=== PATIENT | male | born 1950 | race American Indian/Alaskan Native ===

== ENCOUNTER 2018-01-21 18:16 | Emergency (ER) | payer MEDICARE, BC ==
[2018-01-21] MEDS ORDERED: Aspirin 81 MG Tab.Chew PO ONE (18:34)
[2018-01-21] MEDS ORDERED: Sodium Chloride 0.9% 10 ML Syringe FLUSH PRN (18:36)
--- NOTE | 2018-01-21 18:44 | EDM.PDOC ---
ED HPI GENERAL MEDICAL PROBLEM - General Chief Complaint: Chest Pain Stated Complaint: TROUBLE BREATHING/CHEST PAIN Time Seen by Provider: 01/21/18 18:30 Source of Information: Reports: Patient History Limitations: Reports: No Limitations - History of Present Illness INITIAL COMMENTS - FREE TEXT/NARRATIVE: 68-year-old male presents for evaluation and treatment of chest pain. Patient reports the chest pain has been going on for several weeks. States is located in the substernal area and he has appreciated some radiation up into his jaw. Reports that last night was the worst at that point the pain was a 7 or 8 out of 10. Currently chest pain as a 1 or 2 out of 10. He declines any pain medication for chest pain at this time. States last night he had trouble sleeping and getting comfortable. Exertion seems to worsen the chest pain. He is reporting associated symptoms of shortness of breath and dyspnea on exertion. He denies any recent fevers or cold symptoms. Reports that he has a chronic cough which she has been seen for. Denies any syncope, pain or swelling in his legs, abdominal pain, nausea or vomiting. Patient rep he is a diabetic currently on metformin and insulin both short and long-acting. He also has a history of hypertension and is obese. Patient reports he was no an [place] cruise the beginning of January. He is not a smoker. No cardiac history himself. No history of any MIs or arrhythmias. Location: Reports: Chest Chest Pain Score (Numeric/FACES): 1 - Related Data Allergies Allergy/AdvReac Type Severity Reaction Status Date / Time levofloxacin [From Levaquin] Allergy Shortness Verified 01/21/18 18:24 of Breath Past Medical History Cardiovascular History: Reports: Hypertension Endocrine/Metabolic History: Reports: Diabetes, Type II Social & Family History - Tobacco Use Smoking Status *Q: Never Smoker - Recreational Drug Use Recreational Drug Use: No ED ROS GENERAL - Review of Systems Review Of Systems: See Below Constitutional: Denies: Fever, Diaphoresis Respiratory: Reports: Shortness of Breath, Cough (chronic) Cardiovascular: Reports: Chest Pain, Dyspnea on Exertion, Lightheadedness. Denies: Edema, Syncope GI/Abdominal: Denies: Abdominal Pain, Nausea, Vomiting Musculoskeletal: Denies: Leg Pain Neurological: Denies: Syncope ED EXAM, GENERAL - Physical Exam Exam: See Below Exam Limited By: No Limitations General Appearance: Alert, WD/WN, No Apparent Distress Ears: Normal External Exam Nose: Normal Inspection Throat/Mouth: Normal Inspection, Normal Voice, No Airway Compromise Respiratory/Chest: No Respiratory Distress, Lungs Clear, Normal Breath Sounds Cardiovascular: No Murmur, Tachycardia GI/Abdominal: Soft, Non-Tender Neurological: Alert, Oriented, Normal Cognition Psychiatric: Normal Affect, Normal Mood Skin Exam: Warm, Dry, Normal Color EKG INTERPRETATION EKG Date: 01/21/18 Time: 18:20 Rhythm: Other (sinus tachycardia at 115 bpm.) Rate (Beats/Min): 115 [place]: RAD-Right [place] Deviation P-Wave: Present QRS: Normal ST-T: Normal QT: Normal EKG Interpretation Comments: Sinus tachycardia at 115 bpm. Inverted t waves in the inferior leads. No St elevation. Reviewed by myself and Dr. Martell. Course - Vital Signs Last Recorded V/S: Last Vital Signs Temp 97.2 F 01/21/18 18:24 Pulse 104 H 01/21/18 20:10 Resp 26 H 01/21/18 18:24 BP 139/95 H 01/21/18 20:10 Pulse Ox 96 01/21/18 18:24 - Orders/Labs/Meds Orders: Active Orders 24 hr Category Date Time Status Cardiac Monitoring [RC] . DIRECTED Care 01/21/18 18:39 Active EKG Documentation Completion [RC] ASDIRECTED Care 01/21/18 18:35 Active Peripheral IV Care [RC] . DIRECTED Care 01/21/18 18:36 Active Chest 1V Frontal [CR] Stat Exams 01/21/18 18:34 Taken Chest PE [Ang Chest] [CT] Stat Exams 01/21/18 19:03 Taken Heparin Sodium/D5W [Heparin 25,000 Units in D5W 500 ML] Med 01/21/18 19:30 Active 25,000 units in 500 ml IV TITRATE Nitroglycerin/D5W [Nitroglycerin 25 MG/D5W 250 ML] Med 01/21/18 19:30 Active 25 mg in 250 ml IV TITRATE Sodium Chloride 0.9% [Saline Flush] Med 01/21/18 18:36 Active 10 ml FLUSH ASDIRECTED PRN Peripheral IV Insertion Adult [OM.PC] Routine Oth 01/21/18 18:36 Ordered EKG 12 Lead [EK] Stat Ther 01/21/18 18:34 Ordered Medication Orders Heparin Sodium/Dextrose (Heparin 25,000 Units In D5w 500 Ml) 25,000 units in 500 mls @ 20 mls/hr IV TITRATE VADIM Last Admin: 01/21/18 19:46 Dose: 1,000 units/hr, 20 mls/hr Nitroglycerin/Dextrose (Nitroglycerin 25 Mg/D5w 250 Ml) 25 mg in 250 mls @ 3 mls/hr IV TITRATE VADIM; Protocol Last Admin: 01/21/18 19:46 Dose: 5 mcg/min, 3 mls/hr Sodium Chloride (Saline Flush) 10 ml FLUSH ASDIRECTED PRN PRN Reason: Keep Vein Open Last Admin: 01/21/18 18:39 Dose: 10 ml Labs: Laboratory Tests 01/21/18 01/21/18 01/21/18 Range/Units 18:30 18:30 18:30 WBC 12.78 H (4.23-9.07) K/mm3 RBC 5.47 (4.63-6.08) M/mm3 Hgb 16.2 (13.7-17.5) gm/L Hct 47.5 (40.1-51.0) % MCV 86.8 (79.0-92.2) fl MCH 29.6 (25.7-32.2) pg MCHC 34.1 (32.2-35.5) g/dl RDW Std Deviation 42.0 (35.1-43.9) fL Plt Count 244 (163-337) K/mm3 MPV 10.0 (9.4-12.3) fl Neut % (Auto) 80.3 H (34.0-67.9) % Lymph % (Auto) 9.0 L (21.8-53.1) % [place] % (Auto) 9.7 (5.3-12.2) % Eos % (Auto) 0.6 L (0.8-7.0) Baso % (Auto) 0.2 (0.1-1.2) % Neut # (Auto) 10.26 H (1.78-5.38) K/mm3 Lymph # (Auto) 1.15 L (1.32-3.57) K/mm3 [place] # (Auto) 1.24 H (0.30-0.82) K/mm3 Eos # (Auto) 0.08 (0.04-0.54) K/mm3 Baso # (Auto) 0.02 (0.01-0.08) K/mm3 Manual Slide Review Normal smear PT 10.3 (9.5-12.1) SECONDS INR 0.94 APTT 27 (24-31) SECONDS D-Dimer, Quantitative 2.16 H (0.19-0.50) mg/L Sodium 136 (136-145) mEq/L Potassium 4.1 (3.5-5.1) mEq/L Chloride 101 (98-107) mEq/L Carbon Dioxide 26 (21-32) mEq/L Anion Gap 13.1 (5-15) BUN 18 (7-18) mg/dL Creatinine 1.1 (0.7-1.3) mg/dL Est Cr Clr Drug Dosing 77.81 mL/min Estimated GFR (MDRD) > 60 (>60) mL/min BUN/Creatinine Ratio 16.4 (14-18) Glucose 201 H (80-115) mg/dL Calcium 9.5 (8.5-10.1) mg/dL Total Bilirubin 0.5 (0.2-1.0) mg/dL AST 119 H (15-37) U/L ALT 42 (16-63) U/L Alkaline Phosphatase 107 (46-116) U/L CK-MB (CK-2) 108.6 H (0-3.6) ng/ml Troponin I 12.879 H* (0.00-0.056) ng/mL NT-Pro-B Natriuret Pep (0-125) pg/mL Total Protein 8.3 H (6.4-8.2) g/dl Albumin 3.7 (3.4-5.0) g/dl Globulin 4.6 gm/dL Albumin/Globulin Ratio 0.8 L (1-2) /16/18 Range/Units 18:30 WBC (4.23-9.07) K/mm3 RBC (4.63-6.08) M/mm3 Hgb (13.7-17.5) gm/L Hct (40.1-51.0) % MCV (79.0-92.2) fl MCH (25.7-32.2) pg MCHC (32.2-35.5) g/dl RDW Std Deviation (35.1-43.9) fL Plt Count (163-337) K/mm3 MPV (9.4-12.3) fl Neut % (Auto) (34.0-67.9) % Lymph % (Auto) (21.8-53.1) % [place] % (Auto) (5.3-12.2) % Eos % (Auto) (0.8-7.0) Baso % (Auto) (0.1-1.2) % Neut # (Auto) (1.78-5.38) K/mm3 Lymph # (Auto) (1.32-3.57) K/mm3 [place] # (Auto) (0.30-0.82) K/mm3 Eos # (Auto) (0.04-0.54) K/mm3 Baso # (Auto) (0.01-0.08) K/mm3 Manual Slide Review PT (9.5-12.1) SECONDS INR APTT (24-31) SECONDS D-Dimer, Quantitative (0.19-0.50) mg/L Sodium (136-145) mEq/L Potassium (3.5-5.1) mEq/L Chloride (98-107) mEq/L Carbon Dioxide (21-32) mEq/L Anion Gap (5-15) BUN (7-18) mg/dL Creatinine (0.7-1.3) mg/dL Est Cr Clr Drug Dosing mL/min Estimated GFR (MDRD) (>60) mL/min BUN/Creatinine Ratio (14-18) Glucose (80-115) mg/dL Calcium (8.5-10.1) mg/dL Total Bilirubin (0.2-1.0) mg/dL AST (15-37) U/L ALT (16-63) U/L Alkaline Phosphatase (46-116) U/L CK-MB (CK-2) (0-3.6) ng/ml Troponin I (0.00-0.056) ng/mL NT-Pro-B Natriuret Pep 1952 H (0-125) pg/mL Total Protein (6.4-8.2) g/dl Albumin (3.4-5.0) g/dl Globulin gm/dL Albumin/Globulin Ratio (1-2) Meds: Medications Generic Name Dose Route Start Last Admin Trade Name Frephilipp PRN Reason Stop Dose Admin Heparin Sodium/Dextrose 25,000 units in 500 mls @ 20 mls/hr 01/21/18 19:30 19:46 Heparin 25,000 Units In D5w 500 Ml IV 1,000 units/hr TITRATE VADIM 20 mls/hr Administration 1,000 UNITS/HR Nitroglycerin/Dextrose 25 mg in 250 mls @ 3 mls/hr 01/21/18 19:30 01/21/18 19 :46 Nitroglycerin 25 Mg/D5w 250 Ml IV 5 mcg/min TITRATE VADIM 3 mls/hr Administration Protocol 5 MCG/MIN Sodium Chloride 10 ml 01/21/18 18:36 01/21/18 18:39 Saline Flush FLUSH 10 ml ASDIRECTED PRN Administration Keep Vein Open Discontinued Medications Generic Name Dose Route Start Last Admin Trade Name Rl PRN Reason Stop Dose Admin Aspirin 324 mg 01/21/18 18:34 01/21/18 18:39 Aspirin PO 01/21/18 18:35 324 mg ONETIME ONE Administration Heparin Sodium (Porcine) 5,000 units 01/21/18 19:23 01/21/18 19:44 Heparin Sodium IVPUSH 01/21/18 19:24 5,000 units ONETIME ONE Administration Hydromorphone HCl 0.5 mg 01/21/18 20:02 01/21/18 20:16 Dilaudid IVPUSH 01/21/18 20:03 0.5 mg ONETIME ONE Administration Nitroglycerin/Dextrose Confirm 01/21/18 19:30 01/21/18 19:50 Nitroglycerin 25 Mg/D5w 250 Ml Administered 01/21/18 19:31 Not Given Dose 25 mg in 250 mls @ as directed .ROUTE .STK-MED ONE Heparin Sodium/Dextrose Confirm 01/21/18 19:30 01/21/18 19:50 Heparin 25,000 Units In D5w 500 Ml Administered 01/21/18 19:31 Not Given Dose 500 mls @ as directed .ROUTE .STK-MED ONE Iopamidol 100 ml 01/21/18 19:14 01/21/18 19:45 Isovue-370 (76%) IVPUSH 01/21/18 19:15 100 ml ONETIME ONE Administration Metoprolol Tartrate 5 mg 01/21/18 20:02 01/21/18 20:10 Lopressor IVPUSH 01/21/18 20:03 5 mg ONETIME ONE Administration - Radiology Interpretation Free Text/Narrative:: chest xray shows no acute intrathoracic process. CT chest Technique: Multiple axial sections were obtained through the chest as a pulmonary angiogram protocol. Intravenous contrast was therefore utilized. Comparison: Prior CT chest performed as a high-resolution protocol is available. Findings: Slight fibrosis is again seen within the periphery of both lungs. No acute parenchymal densities are seen. Pulmonary arteries are well opacified. No filling defects are seen to indicate pulmonary embolism. Mediastinum and hilar regions show no adenopathy or mass. Prominent coronary artery calcification is noted. Small portion of the visualized upper abdominal structures are felt to be within normal limits. Bone window settings were reviewed which shows diffuse degenerative change within the spine. Several levels of disc calcification are seen. Impression: 1. No findings of pulmonary embolism. 2. Other incidental findings as noted above. - Re-Assessments/Exams Free Text/Narrative Re-Assessment/Exam: 01/21/18 20:29 Reviewed the labs, EKG and imaging with the patient. Once the d-dimer returned elevated I ordered a CT pulmonary angiogram exam. Heparin bolus of 5000 units given as well as a drip started at 1000 units an hour given. Nitroglycerin started at 5 g per hour. He was given Lopressor 5 mg IV. Blood pressures has come down. He did develop a slight headache from the nitroglycerin he was given 0.5 mg Dilaudid for this. Discussed with him his labs and imaging. He elects to go to [facility] in [place]. I discussed the case with Dr. Gonzalez, hospitalist aeronautical design engineer. She asked that we obtain the formal read from radiology and if negative for PE he may come to [place]. The formal read returned and is negative for any PE. He is having a NSTEMi. Will go to [facility] in [place]. He is a direct admission to Dr. Gonzalez. Departure - Departure Time of Disposition: 20:34 Disposition: DC/Tfer to Acute Hospital 02 Reason for Transfer *Q: Primary PCI Indicated Condition: Serious Clinical Impression: NSTEMI (non-ST elevated myocardial infarction) Referrals: PCP,Not In Area [Primary Care Provider] - Luis Armando Armenta MD [Consulting Physician] - Forms: ED Department Discharge Additional Instructions: Patient to go to [facility] in [place]. He will be a direct admission to Dr. Gonzalez. He'll go by ground ambulance. - My Orders Last 24 Hours: My Active Orders 01/21/18 18:34 Chest 1V Frontal [CR] Stat EKG 12 Lead [EK] Stat 01/21/18 18:35 EKG Documentation Completion [RC] ASDIRECTED 01/21/18 18:36 Peripheral IV Care [RC] . DIRECTED Sodium Chloride 0.9% [Saline Flush] 10 ml FLUSH ASDIRECTED PRN Peripheral IV Insertion Adult [OM.PC] Routine 01/21/18 18:39 Cardiac Monitoring [RC] . DIRECTED 01/21/18 19:03 Chest PE [Ang Chest] [CT] Stat 01/21/18 19:30 Heparin Sodium/D5W [Heparin 25,000 Units in D5W 500 ML] 25,000 units in 500 ml IV TITRATE Nitroglycerin/D5W [Nitroglycerin 25 MG/D5W 250 ML] 25 mg in 250 ml IV TITRATE - Assessment/Plan Last 24 Hours: My Active Orders 01/21/18 18:34 Chest 1V Frontal [CR] Stat EKG 12 Lead [EK] Stat 01/21/18 18:35 EKG Documentation Completion [RC] ASDIRECTED 01/21/18 18:36 Peripheral IV Care [RC] . DIRECTED Sodium Chloride 0.9% [Saline Flush] 10 ml FLUSH ASDIRECTED PRN Peripheral IV Insertion Adult [OM.PC] Routine 01/21/18 18:39 Cardiac Monitoring [RC] . DIRECTED 01/21/18 19:03 Chest PE [Ang Chest] [CT] Stat 01/21/18 19:30 Heparin Sodium/D5W [Heparin 25,000 Units in D5W 500 ML] 25,000 units in 500 ml IV TITRATE Nitroglycerin/D5W [Nitroglycerin 25 MG/D5W 250 ML] 25 mg in 250 ml IV TITRATE
[2018-01-21] MEDS ORDERED: Iopamidol 755 Mg/ML 100 ML Bottle IVPUSH ONE (19:14)
[2018-01-21] MEDS ORDERED: Heparin Sodium 5,000 Units/ML Vial IVPUSH ONE (19:23)
[2018-01-21] MEDS ORDERED: Nitroglycerin/D5W 25 MG/250 ML BOTTLE ONE (19:30)
[2018-01-21] MEDS ORDERED: Heparin Sodium/D5W 25,000 UNITS/500 ML BAG IV SCH (19:30)
[2018-01-21] MEDS ORDERED: Nitroglycerin/D5W 25 MG/250 ML BOTTLE IV SCH (19:30)
[2018-01-21] MEDS ORDERED: Heparin Sodium/D5W 500 ML ONE (19:30)
[2018-01-21] MEDS ORDERED: Metoprolol Tartrate 5 MG/5 ML SDV IVPUSH ONE ×2 (20:02→20:36)
[2018-01-21] MEDS ORDERED: HYDROmorphone 0.5 MG/0.5 ML SYRINGE IVPUSH ONE (20:02)
--- NOTE | 2018-01-21 21:41 | CT ---
CT chest Technique: Multiple axial sections were obtained through the chest as a pulmonary angiogram protocol. Intravenous contrast was therefore utilized. Comparison: Prior CT chest performed as a high-resolution protocol is available. Findings: Slight fibrosis is again seen within the periphery of both lungs. No acute parenchymal densities are seen. Pulmonary arteries are well opacified. No filling defects are seen to indicate pulmonary embolism. Mediastinum and hilar regions show no adenopathy or mass. Prominent coronary artery calcification is noted. Small portion of the visualized upper abdominal structures are felt to be within normal limits. Bone window settings were reviewed which shows diffuse degenerative change within the spine. Several levels of disc calcification are seen. Impression: 1. No findings of pulmonary embolism. 2. Other incidental findings as noted above. Diagnostic code #2
--- NOTE | 2018-01-22 07:19 | CR ---
Chest: Portable view of the chest was obtained. Comparison: No prior chest x-ray. Heart size and mediastinum are within normal limits. Lungs are clear. Bony structures are grossly intact. Impression: 1. Nothing acute is seen on portable chest x-ray. Diagnostic code #1
== END 2018-01-21 21:09 ==
LOC: JD.ED 18:16
DX: I21.4 Non-ST elevation (NSTEMI) myocardial infarction (principal); E11.9 Type 2 diabetes mellitus without complications; Z88.1 Allergy status to other antibiotic agents
CPT/HCPCS: 36415; 71045; 71275; 80053; 82553; 83880; 84484; 85025; 85379; 85610; 85730; 93005; 96365; 96368; 96375; 96376; 99285; A9270; J1170; J1644; J3490; J7050; Q9967; 93010